=== PATIENT | female | born 1985 | race Two or more races ===

== ENCOUNTER 2016-05-31 20:47 | Emergency (ER) | payer SELFPAY ==
[~2016-05-31] VITALS: Ht 170.2 cm; Wt 56.2 kg
[2016-05-31 21:05] VITALS: BP 102/62
--- NOTE | 2016-05-31 21:54 | PHYS DOC ---
Past Medical History Past Medical History: No Pertinent History Past Surgical History: No Surgical History Alcohol Use: None Drug Use: None Adult General Chief Complaint Chief Complaint: FEVER HPI HPI Patient is a 30 year old female presents emergency Department with his significant other. Patient is Upper Sorbian-speaking only significant other is interpreting for the patient. He states that she has been sick for the last 3-4 days. He states that she has had a cough congestion runny nose and a sore throat. She is also been having nausea and vomiting in which she has vomited 5 times within the last 24 hours and has had 2-3 diarrhea stools. He denies any blood being in either of the stools or vomit. Review of Systems Review of Systems Constitutional: hx fever Eyes: Denies change in visual acuity, redness, or eye pain [] HENT: nasal congestion denies sore throat [] Respiratory: cough denies shortness of breath [] Cardiovascular: No additional information not addressed in HPI [] GI: abdominal pain, nausea, vomiting, and diarrhea [] : Denies dysuria or hematuria [] Musculoskeletal: Denies back pain or joint pain [] Integument: Denies rash or skin lesions [] Neurologic: Denies headache, focal weakness or sensory changes [] Current Medications Current Medications Current Medications Medications (Trade) Dose Ordered Sig/Jose Juan Start Time Stop Time Status Last Admin Dose Admin Ondansetron HCl (Zofran Odt) 4 mg 1X ONCE 05/31/16 22:00 05/31/16 22:01 DC 05/31/16 21:58 4 MG Allergies Allergies Allergies Coded Allergies Type Severity Reaction Last Updated Verified No Known Drug Allergies 05/31/16 No Physical Exam Physical Exam Constitutional: Well developed, well nourished, no acute distress, non-toxic appearance. [] HENT: Normocephalic, atraumatic, bilateral external ears normal, oropharynx moist, no oral exudates, nose normal. Bilateral tympanic membranes appear to be normal. Throat with erythematous with exudate noted. Tonsils appear to be swollen uvula appears to be with no deviation. Eyes: PERRLA, EOMI, conjunctiva normal, no discharge. [] Neck: Normal range of motion, no tenderness, supple, no stridor. [] Cardiovascular:Heart rate regular rhythm, no murmur [] Lungs & Thorax: Bilateral breath sounds clear to auscultation [] Abdomen: Bowel sounds hypoactive, soft, generalized tenderness, no masses, no pulsatile masses. [] Skin: Warm, dry, no erythema, no rash. [] Back: No tenderness Extremities: No tenderness, no cyanosis, no clubbing, ROM intact, no edema. [] Neurologic: Alert and oriented X 3, normal motor function, normal sensory function, no focal deficits noted. [] Psychologic: Affect normal, judgement normal, mood normal. [] Current Patient Data Vital Signs Vital Signs Date Time Temp Pulse Resp B/P Pulse Ox O2 Delivery O2 Flow Rate FiO2 05/31/16 21:05 99.7 118 16 99 Room Air 99.7 Lab Values Laboratory Tests Test 05/31/16 21:24 Influenza Type A Antigen Negative (NEGATIVE) Influenza Type B Antigen Negative (NEGATIVE) EKG EKG [] Radiology/Procedures Radiology/Procedures [] Course & Med Decision Making Course & Med Decision Making Pertinent Labs and Imaging studies reviewed. (See chart for details) Rapid strep was positive. Influenza swabs were negative. Patient will be discharged home with amoxicillin. Recommendations to drink plenty of fluids. Tylenol and ibuprofen for fever chills generalized body aches and discomfort. Also recommended patient to discard her toothbrush in the next 24 hours and obtain a new one. Patient will be discharged home in stable condition since symptoms to return back to emergency prior has been provided. [] Dragon Disclaimer Dragon Disclaimer This electronic medical record was generated, in whole or in part, using a voice recognition dictation system. Departure Departure Impression: Primary Impression: Strep throat Disposition: HOME, SELF-CARE Condition: STABLE Patient Instructions: Strep Throat, [id number] Additional Instructions: Home to rest Tylenol or ibuprofen for fever chills or generalized body aches and discomfort. Medication as prescribed. Drink plenty of fluids. Warm salt water gargles may help with the soothe the throat. Discard her toothbrush in the next 24 hours. Follow-up primary care physician in the next 3-5 days. Return back to emergency department sign symptoms of become worse. Scripts Amoxicillin 500 Mg Capsule1 Cap PO BID #20 CAP Prov:ALVERTO YI NP 05/31/16 ALVERTO YI NP May 31, 2016 21:54
[2016-05-31] MEDS ORDERED: ONDANSETRON ODT 4 MG TAB.RAPDIS PO ONE (22:00)
[2016-05-31 22:06] LABS: OBC FLU VALID
[2016-05-31] MEDS ORDERED: AMOX500C PO (22:15)
[2016-06-01 07:40] LABS: NEGATIVE OBC STREP NEG; POSITIVE OBC STREP POS
== END 2016-05-31 22:25 | disposition home or self-care (01) ==
LOC: ER 20:47
DX: J02.0 Streptococcal pharyngitis (principal); R11.2 Nausea with vomiting, unspecified; R19.7 Diarrhea, unspecified
CPT/HCPCS: 87804; 87880; 99284; Q0162; 99285-25

== ENCOUNTER 2017-01-10 18:01 | Inpatient (IN) | payer SELFPAY ==
[~2017-01-10] VITALS: Ht 162.6 cm; Wt 72.6 kg
[~2017-01-10 18:01] MED LIST: AMOX500C PO
[2017-01-10] MEDS ORDERED: ACETAMINOPHEN 325 MG TABLET. PO PRN (18:45)
[2017-01-10] MEDS ORDERED: ZOLPIDEM 5 MG TABLET. PO PRN (18:45)
[2017-01-10] MEDS: IV RINGERS,LACTATED 1000ML 1,000 ML IV PRN ×2 (19:19→22:01)
[2017-01-10 21:07] LABS: BILIRUBIN,URINE NEGATIVE (NEG); GLUCOSE,URINE NEGATIVE (NEG); NITRITE,URINE NEGATIVE (NEG); PROTEIN,URINE NEGATIVE (NEG-TRACE)
[2017-01-10 21:14] LABS: BARBITURATES NEG (NEG); BENZODIAZEPINES NEG (NEG); CANNABINOIDS NEG (NEG); COCAINE NEG (NEG); METHADONE NEG (NEG); OPIATES NEG (NEG); PHENCYCLIDINE NEG (NEG)
[2017-01-10 21:17] LABS: BACTERIA,URINE FEW /HPF (0-FEW); SQUAMOUS EPITHELIAL CELL,UR FEW /LPF
[2017-01-11] MEDS: IV RINGERS,LACTATED 1000ML 1,000 ML IV PRN ×2 (05:39→13:12)
--- NOTE | 2017-01-11 08:14 | PDOC1 ---
OB - History Hx of Present Care: Good Care Ultrasounds: Normal mid trimester US Obstetrical Complications: None Medical Complications: None Other Concerns: Desires Past Family/Social History * Past Medical, Surgical, Family and Obstetric Histories reviewed from chart. Rubella: Immune RPR/VDRL: Negative GBS Status: Negative HBsAG: Negative OB - Chief Complaint & HPI Date of Admission: Date of Admission: Jan 10, 2017 at 18:01 Chief Complaint/History : 3 Para: 2 EGA: 38 Reason for admission: active labor Admission Nurse Assessment Rev: Yes Problems: OB - Admission Exam Physical Exam Vitals: VS - Last 72 Hours, by Label Date Time Temp Pulse Resp B/P (MAP) Pulse Ox O2 Delivery O2 Flow Rate FiO2 01/11/17 00:37 99.3 18 Room Air 99.3 HEENT: Normal Heart: Regular Rate Lungs: Clear Abdomen: Gravid, Non tender, Soft Extremities: Edema Reflexes: Normal Cervical Dilatation: 4cm Effacement: 75% Station: -2 Membranes: Intact Heart Rate: Normal Accelerations: Accelerations Present Decelerations: No decelerations Contractions on Admission: 6-10 Minutes Apart Intensity: Mild Text A: 38 wks IUP Previous C/s Desires P: Admit for labor management. KEZIA TAVERAS Jr, MD Jan 11, 2017 08:13
[2017-01-11] MEDS ORDERED: IV RINGERS,LACTATED 1000ML 1,000 ML IV SCH (11:41)
[2017-01-11] MEDS ORDERED: OXYTOCIN 30 UNIT/500 ML PREMIX 500 ML IV PRN ×2 (11:45)
[2017-01-11] MEDS ORDERED: TERBUTALINE 1 MG/ML VIAL. SQ PRN (11:45)
[2017-01-11] MEDS ORDERED: LIDOCAINE 1% PF 30 ML VIAL. INJ PRN (11:45)
[2017-01-11] MEDS ORDERED: fentaNYL PF VIAL 100 MCG/2 ML VIAL IV PRN (11:45)
[2017-01-11] MEDS ORDERED: 0.9 % SODIUM CHLORIDE 10 ML DISP.SYRIN. IV PRN (11:45)
[2017-01-11] MEDS ORDERED: IBUPROFEN 600 MG TABLET. PO PRN (11:45)
[2017-01-11 13:21] LABS: HEMATOCRIT 34.1 % (36.0-47.0); HEMOGLOBIN 11.6 g/dL (12.0-15.5); RED BLOOD COUNT 3.61 x10^6/uL (3.50-5.40); RED CELL DISTRIBUTION WIDTH 13.3 % (11.5-14.5); WHITE BLOOD COUNT 7.2 x10^3/uL (4.0-11.0)
--- NOTE | 2017-01-11 16:30 | RAD ---
EXAM: biophysical profile. HISTORY: Active labor. TECHNIQUE: Sonographic imaging of a gravid uterus was performed. COMPARISON: None. FINDINGS: There is a single intrauterine fetus in vertex presentation with a heart rate of 150 bpm. The amniotic fluid index is decreased at 6.3 cm. There is a grade 3 right lateral placenta without evidence of placenta previa. There is normal tone, breathing movement and body movement and there is a normal pocket of amniotic fluid, corresponding with a biophysical profile 8/8. The cervix measures 3.6 cm in length. The exam time is 12 minutes. IMPRESSION: 1. Single intrauterine fetus in vertex presentation with a heart rate of 150 bpm. 2. Slightly decreased amniotic fluid index of 6.3 cm. 3. biophysical profile of 8/8. 4. Long and closed cervix.
[2017-01-12] MEDS ORDERED: OXYTOCIN 30 UNIT/500 ML PREMIX 500 ML IV ONE (06:00)
[2017-01-12] MEDS: IV RINGERS,LACTATED 1000ML 1,000 ML IV PRN (07:01)
--- NOTE | 2017-01-12 10:07 | PDOC ---
OB Progress Note Date: Latent labor ACD Borderline oligo One 2X2 pocket without cord Large pocket appears to contain cord Language barrier Proceed to delivery with augmentation of 38/3 week IUP Lab Laboratory Tests Test 01/10/17 20:55 01/11/17 12:25 Urine Collection Type Unknown Urine Color Sylwia Urine Clarity Cloudy Urine pH 7.0 Urine Specific [place] 1.020 Urine Protein Negative mg/dL (NEG-TRACE) Urine Glucose (UA) Negative mg/dL (NEG) Urine Ketones (Stick) Negative mg/dL (NEG) Urine Blood Moderate (NEG) Urine Nitrite Negative (NEG) Urine Bilirubin Negative (NEG) Urine Urobilinogen Dipstick 1.0 mg/dL (0.2 mg/dL) Urine Leukocyte Esterase Small (NEG) Urine RBC 6-10 /HPF (0-2) Urine WBC 1-4 /HPF (0-4) Urine Squamous Epithelial Cells Few /LPF Urine Bacteria Few /HPF (0-FEW) Urine Mucus Slight /LPF Urine Opiates Screen Neg (NEG) Urine Methadone Screen Neg (NEG) Urine Barbiturates Neg (NEG) Urine Phencyclidine Screen Neg (NEG) Urine Amphetamine/Methamphetamine Neg (NEG) Urine Benzodiazepines Screen Neg (NEG) Urine Cocaine Screen Neg (NEG) Urine Cannabinoids Screen Neg (NEG) Urine Ethyl Alcohol Neg (NEG) White Blood Count 7.2 x10^3/uL (4.0-11.0) Red Blood Count 3.61 x10^6/uL (3.50-5.40) Hemoglobin 11.6 g/dL (12.0-15.5) Hematocrit 34.1 % (36.0-47.0) Mean Corpuscular Volume 95 fL (79-100) Mean Corpuscular Hemoglobin 32 pg (25-35) Mean Corpuscular Hemoglobin Concent 34 g/dL (31-37) Red Cell Distribution Width 13.3 % (11.5-14.5) Platelet Count 157 x10^3/uL (140-400) Laboratory Tests Test 01/11/17 12:25 White Blood Count 7.2 x10^3/uL (4.0-11.0) Red Blood Count 3.61 x10^6/uL (3.50-5.40) Hemoglobin 11.6 g/dL (12.0-15.5) Hematocrit 34.1 % (36.0-47.0) Mean Corpuscular Volume 95 fL (79-100) Mean Corpuscular Hemoglobin 32 pg (25-35) Mean Corpuscular Hemoglobin Concent 34 g/dL (31-37) Red Cell Distribution Width 13.3 % (11.5-14.5) Platelet Count 157 x10^3/uL (140-400) Medications Current Medications Ringer's Solution 1,000 ml @ 125 mls/hr Q8H PRN IV PAIN Last administered on 07:01; Start 01/10/17 at 18:45 Acetaminophen (Tylenol) 650 mg PRN Q6HRS PRN PO PAIN, TEMP > 100.5'F; Start at 18:45 Zolpidem Tartrate (Ambien) 5 mg PRN QHS PRN PO INSOMNIA Last administered on 22:00; Start 01/10/17 at 18:45 Sodium Chloride (Normal Saline Flush) 3 ml QSHIFT PRN IV AFTER MEDS AND BLOOD DRAWS; Start 01/11/17 at 11:45 Ringer's Solution 1,000 ml @ 125 mls/hr Q8H IV ; Start 01/11/17 at 11:41 Fentanyl Citrate (Fentanyl 2ml Vial) 50 mcg PRN Q30MIN PRN IV Mild to moderate pain; Start 01/11/17 at 11:45 Terbutaline Sulfate (Brethine) 0.25 mg 1X PRN PRN SQ SEE COMMENTS; Start at 11:45; Stop 01/12/17 at 11:44 Lidocaine HCl 30 ml 1X PRN PRN INJ SEE COMMENTS; Start 01/11/17 at 11:45; Stop 01/13/17 at 11:44 Oxytocin/Sodium Chloride 500 ml @ 0 mls/hr CONT PRN IV SEE I/O RECORD; Start at 11:45 Oxytocin/Sodium Chloride 500 ml @ 0 mls/hr CONT PRN PRN IV Post delivery bleeding; Start 01/11/17 at 11:45 Ibuprofen (Motrin) 600 mg PRN Q6HRS PRN PO PAIN; Start 01/11/17 at 11:45 Oxytocin/Sodium Chloride 500 ml @ 0 mls/hr 1X ONCE IV Last administered on 09:24; Start 01/12/17 at 06:00; Stop 01/12/17 at 06:01; Status DC Active Scripts Active Amoxicillin 500 Mg Capsule 1 Cap PO BID Plan of Care: See new orders Other Anticipate -KARSON Xiao MD Jan 12, 2017 10:07
[2017-01-12] MEDS ORDERED: IV RINGERS,LACTATED 1000ML 1,000 ML IV SCH (10:33)
[2017-01-12] MEDS ORDERED: L&D EPIDURAL CASSETTE 100 ML EP ONE (10:37)
[2017-01-12] MEDS ORDERED: NALOXONE 0.4 MG/ML VIAL. IV PRN (10:45)
[2017-01-12] MEDS ORDERED: ePHEDrine PF IN SALINE 50 MG/5 ML DISP.SYRIN IV PRN (10:45)
[2017-01-12] MEDS ORDERED: ONDANSETRON PF 4 MG/2 ML VIAL. IV PRN (10:45)
[2017-01-12] MEDS ORDERED: L&D EPIDURAL CASSETTE 100 ML EP PRN (10:45)
[2017-01-12] MEDS ORDERED: ROPIVacaine 0.2% IN 0.9%NACL PF 40 MG/20 ML DISP.SYRIN. EPI PRN (10:45)
[2017-01-12] MEDS ORDERED: fentaNYL PF VIAL 100 MCG/2 ML VIAL EPI PRN (10:45)
--- NOTE | 2017-01-12 11:20 | PDOC ---
VAGINAL DELIVERY DATE DATE: 01/12/17 TIME: 11:19 : 3 Para: 3 EGA: 38 VAGINAL DELIVERY: VTX VACCUM ASSISTED: No PLACENTA: Spontaneous 8/9 SEX: Female WEIGHT Weight pending ] Nuchal Cord: No Amniotic Fluid: Clear PAIN: Natural EPISIOTOMY: No EXTENSION: No EBL 300 ml COMPLICATIONS none Signs of Intrauterine Infectio: None Shoulder Dystocia: No Problems: KEZIA TAVERAS Jr, MD Jan 12, 2017 11:20
[2017-01-12] MEDS ORDERED: SIMETHICONE 80 MG TAB.CHEW PO PRN (11:30)
[2017-01-12] MEDS ORDERED: ZOLPIDEM 5 MG TABLET. PO PRN (11:30)
[2017-01-12] MEDS ORDERED: ACETAMINOPHEN 325 MG TABLET. PO PRN (11:30)
[2017-01-12] MEDS ORDERED: PHENYLEPH/MINERAL OIL/PETROLAT RECTAL OINTMENT 28GM TUBE. RC PRN (11:30)
[2017-01-12] MEDS ORDERED: MAGNESIUM HYDROXIDE 2,400 MG/30 ML ORAL.SUSP. PO PRN (11:30)
[2017-01-12] MEDS ORDERED: MMR per PROTOCOL. MC PRN (11:30)
[2017-01-12] MEDS ORDERED: OXYTOCIN 30 UNIT/500 ML PREMIX 500 ML IV PRN (11:30)
[2017-01-12] MEDS ORDERED: MAG HYDROX/ALUMINUM HYD/SIMETH 30 ML ORAL.SUSP PO PRN (11:30)
[2017-01-12] MEDS ORDERED: BENZOCAINE 20% TOPICAL AEROSOL SPRAY 57GM CAN. TP PRN (11:30)
[2017-01-12] MEDS ORDERED: 0.9 % SODIUM CHLORIDE 10 ML DISP.SYRIN. IV PRN (11:30)
[2017-01-12] MEDS ORDERED: HYDROCORTISONE 1% TOPICAL OINTMENT 30GM TUBE. TP PRN (11:30)
[2017-01-12] MEDS ORDERED: diphenhydrAMINE HCL 25 MG CAPSULE PO PRN (11:30)
[2017-01-12] MEDS: IBUPROFEN 800 MG TABLET. PO PRN ×2 (14:02→22:14)
[2017-01-12 14:30] VITALS: BP 100/70
[2017-01-12 15:00] VITALS: BP 97/67
[2017-01-12 16:00] VITALS: BP 98/67
[2017-01-12 17:00] VITALS: BP 98/70
[2017-01-12] MEDS ORDERED: FERROUS SULFATE 325 MG TABLET. PO SCH (17:00)
[2017-01-12] MEDS ORDERED: FLU VACC QS2017-18 (36MOS+)/PF 0.5 ML SYRINGE. VAX IM ONE (18:30)
[2017-01-12] MEDS: DOCUSATE SODIUM 100 MG CAPSULE. PO PRN (22:14)
[2017-01-12 22:31] VITALS: BP 104/72
[2017-01-13 01:00] VITALS: BP 102/74
[2017-01-13 04:00] LABS: BASO % 0 % (0-3); EOS % 1 % (0-3); HEMATOCRIT 33.6 % (36.0-47.0); HEMOGLOBIN 11.5 g/dL (12.0-15.5); LYMPH # 2.6 x10^3/uL (1.0-4.8); LYMPH % 26 % (24-48); MEAN CORPUSCULAR HEMOGLOBIN 33 pg (25-35); MEAN CORPUSCULAR HGB CONC 34 g/dL (31-37); MEAN CORPUSCULAR VOLUME 95 fL (79-100); MONO % 6 % (0-9); NEUT % 67 % (31-73); PLATELET COUNT 153 x10^3/uL (140-400); RED BLOOD COUNT 3.55 x10^6/uL (3.50-5.40); RED CELL DISTRIBUTION WIDTH 13.4 % (11.5-14.5); WHITE BLOOD COUNT 10.1 x10^3/uL (4.0-11.0)
[2017-01-13 05:00] VITALS: BP 95/69
[2017-01-13] MEDS: IBUPROFEN 800 MG TABLET. PO PRN ×3 (05:15→20:54)
--- NOTE | 2017-01-13 13:00 | PDOC ---
OB Progress Note Date of Service 01/13/17 Time of Evaluation 1255 Notes Pt. feeling well. No complaints. Breast feeding. Lochia minimal. Pain controlled. Lab Laboratory Tests Test 01/13/17 03:30 White Blood Count 10.1 x10^3/uL (4.0-11.0) Red Blood Count 3.55 x10^6/uL (3.50-5.40) Hemoglobin 11.5 g/dL (12.0-15.5) Hematocrit 33.6 % (36.0-47.0) Mean Corpuscular Volume 95 fL (79-100) Mean Corpuscular Hemoglobin 33 pg (25-35) Mean Corpuscular Hemoglobin Concent 34 g/dL (31-37) Red Cell Distribution Width 13.4 % (11.5-14.5) Platelet Count 153 x10^3/uL (140-400) Neutrophils (%) (Auto) 67 % (31-73) Lymphocytes (%) (Auto) 26 % (24-48) Monocytes (%) (Auto) 6 % (0-9) Eosinophils (%) (Auto) 1 % (0-3) Basophils (%) (Auto) 0 % (0-3) Neutrophils # (Auto) 6.7 x10^3uL (1.8-7.7) Lymphocytes # (Auto) 2.6 x10^3/uL (1.0-4.8) Monocytes # (Auto) 0.6 x10^3/uL (0.0-1.1) Eosinophils # (Auto) 0.1 x10^3/uL (0.0-0.7) Basophils # (Auto) 0.0 x10^3/uL (0.0-0.2) Laboratory Tests Test 01/13/17 03:30 White Blood Count 10.1 x10^3/uL (4.0-11.0) Red Blood Count 3.55 x10^6/uL (3.50-5.40) Hemoglobin 11.5 g/dL (12.0-15.5) Hematocrit 33.6 % (36.0-47.0) Mean Corpuscular Volume 95 fL (79-100) Mean Corpuscular Hemoglobin 33 pg (25-35) Mean Corpuscular Hemoglobin Concent 34 g/dL (31-37) Red Cell Distribution Width 13.4 % (11.5-14.5) Platelet Count 153 x10^3/uL (140-400) Neutrophils (%) (Auto) 67 % (31-73) Lymphocytes (%) (Auto) 26 % (24-48) Monocytes (%) (Auto) 6 % (0-9) Eosinophils (%) (Auto) 1 % (0-3) Basophils (%) (Auto) 0 % (0-3) Neutrophils # (Auto) 6.7 x10^3uL (1.8-7.7) Lymphocytes # (Auto) 2.6 x10^3/uL (1.0-4.8) Monocytes # (Auto) 0.6 x10^3/uL (0.0-1.1) Eosinophils # (Auto) 0.1 x10^3/uL (0.0-0.7) Basophils # (Auto) 0.0 x10^3/uL (0.0-0.2) Medications Current Medications Ringer's Solution 1,000 ml @ 125 mls/hr Q8H PRN IV PAIN Last administered on 07:01; Start 01/10/17 at 18:45 Acetaminophen (Tylenol) 650 mg PRN Q6HRS PRN PO PAIN, TEMP > 100.5'F; Start at 18:45; Status Cancel Zolpidem Tartrate (Ambien) 5 mg PRN QHS PRN PO INSOMNIA Last administered on 22:00; Start 01/10/17 at 18:45; Stop 01/12/17 at 18:29; Status DC Sodium Chloride (Normal Saline Flush) 3 ml QSHIFT PRN IV AFTER MEDS AND BLOOD DRAWS; Start 01/11/17 at 11:45 Ringer's Solution 1,000 ml @ 125 mls/hr Q8H IV ; Start 01/11/17 at 11:41 Fentanyl Citrate (Fentanyl 2ml Vial) 50 mcg PRN Q30MIN PRN IV Mild to moderate pain; Start 01/11/17 at 11:45 Terbutaline Sulfate (Brethine) 0.25 mg 1X PRN PRN SQ SEE COMMENTS; Start at 11:45; Stop 01/12/17 at 11:44; Status DC Lidocaine HCl 30 ml 1X PRN PRN INJ SEE COMMENTS; Start 01/11/17 at 11:45; Stop 01/13/17 at 11:44; Status DC Oxytocin/Sodium Chloride 500 ml @ 0 mls/hr CONT PRN IV SEE I/O RECORD; Start at 11:45 Oxytocin/Sodium Chloride 500 ml @ 0 mls/hr CONT PRN PRN IV Post delivery bleeding; Start 01/11/17 at 11:45 Ibuprofen (Motrin) 600 mg PRN Q6HRS PRN PO PAIN; Start 01/11/17 at 11:45 Oxytocin/Sodium Chloride 500 ml @ 0 mls/hr 1X ONCE IV Last administered on 09:24; Start 01/12/17 at 06:00; Stop 01/12/17 at 06:01; Status DC Ringer's Solution 1,000 ml @ 1,000 mls/hr Q1H IV ; Start 01/12/17 at 10:33; Stop 01/12/17 at 11:33; Status DC Ephedrine Sulfate 10 mg PRN Q2MIN PRN IV IF SBP<90; Start 01/12/17 at 10:45 Naloxone HCl (Narcan) 0.4 mg PRN Q1MIN PRN IV SEE COMMENTS; Start 01/12/17 at 10:45 Fentanyl Citrate (Fentanyl 2ml Vial) 100 mcg PRN 1X PRN EPI FOR ANESTHESIA; Start 01/12/17 at 10:45; Stop 01/13/17 at 10:44; Status DC Ropivacaine/ Fentanyl/NS 100 ml @ 14 mls/hr CONT PRN EP PAIN Last administered on 01/12/17 12:33; Start 01/12/17 at 10:45 Ondansetron HCl (Zofran) 4 mg PRN Q6HRS PRN IV NAUSEA/VOMITING; Start 01/12/17 at 10:45 Ropivacaine/ Sodium Chloride 40 mg PRN 1X PRN EPI SEE COMMENTS Last administered on 01/12/17 12:30; Start 01/12/17 at 10:45; Stop 01/13/17 at 10:44 ; Status DC Ropivacaine/ Fentanyl/NS 100 ml @ As Directed STK-MED ONCE EP ; Start 01/12/17 at 10:37; Stop 01/12/17 at 10:38; Status DC Sodium Chloride (Normal Saline Flush) 10 ml QSHIFT PRN IV AFTER MEDS AND BLOOD DRAWS; Start 01/12/17 at 11:30 Oxytocin/Sodium Chloride 500 ml @ 62.5 mls/hr CONT PRN IV SEE I/O RECORD; Start 01/12/17 at 11:30; Stop 01/12/17 at 19:29; Status DC Acetaminophen (Tylenol) 650 mg PRN Q6HRS PRN PO MILD PAIN / TEMP; Start at 11:30 Ibuprofen (Motrin) 800 mg PRN Q8HRS PRN PO INFLAMMATION/PAIN PREVENTION Last administered on 01/13/17 05:15; Start 01/12/17 at 11:30 Docusate Sodium (Colace) 100 mg PRN BID PRN PO CONSTIPATION Last administered on 01/12/17 22:14; Start 01/12/17 at 11:30 Magnesium Hydroxide (Milk Of Magnesia) 2,400 mg PRN DAILY PRN PO CONSTIPATION; Start 01/12/17 at 11:30 Al Hydroxide/Mg Hydroxide (Mylanta Plus Xs) 30 ml PRN Q4HRS PRN PO HEARTBURN / GAS; Start 01/12/17 at 11:30 Simethicone (Gas-X) 80 mg PRN AFTMEALHC PRN PO GAS / BLOATING; Start 01/12/17 at 11:30 Diphenhydramine HCl (Benadryl) 25 mg PRN Q6HRS PRN PO ITCHING; Start 01/12/17 at 11:30 Benzocaine (Americaine) 1 spray PRN QID PRN TP TOPICAL PAIN; Start 01/12/17 at 11:30 Phenyleph/Shark Oil/Min Oil/Petrol (Preparation H) 1 cassidy PRN QID PRN RC RECTAL PAIN; Start 01/12/17 at 11:30 Hydrocortisone (Cortaid) 1 cassidy PRN QID PRN TP PERINEAL PAIN; Start 01/12/17 at 11:30 Ferrous Sulfate (Feosol) 325 mg BIDWMEALS PO ; Start 01/12/17 at 17:00 Zolpidem Tartrate (Ambien) 5 mg PRN QHS PRN PO INSOMNIA, MAY REPEAT X1; Start 01/12/17 at 11:30 Info (Do NOT chart on this placeholder) 1 ea 1X PRN PRN MC SEE COMMENTS; Start 01/12/17 at 11:30 Info (Do NOT chart on this placeholder) 1 ea 1X PRN PRN MC SEE COMMENTS; Start 01/12/17 at 11:30 Oxycodone/ Acetaminophen (Percocet 5/325) 2 tab PRN Q4HRS PRN PO MODERATE PAIN , SEVERE PAIN; Start 01/12/17 at 11:30 Influenza Virus Vaccine Quadrival (Fluarix Quad 7245-2021 Syringe) 0.5 ml ONCE ONCE VAX IM Last administered on 01/12/17t 22:17; Start 01/12/17 at 18:30; Stop 01/12/17 at 18:31; Status DC Active Scripts Active Amoxicillin 500 Mg Capsule 1 Cap PO BID Exam Abd: soft,non tender, fundus firm Assessment PPD#1 s/p Plan of Care: Continue current Tx, Mgmt KEZIA TAVERAS Jr, MD Jan 13, 2017 13:00
[2017-01-13] MEDS: DOCUSATE SODIUM 100 MG CAPSULE. PO PRN ×2 (13:54→20:54)
[2017-01-13] MEDS: oxyCODONE/APAP 5/325 1 TAB TABLET PO PRN ×2 (13:54→20:54)
[2017-01-13 14:03] VITALS: BP 102/72
[2017-01-13 21:00] VITALS: BP 102/65
[2017-01-14 05:05] VITALS: BP 88/54
[2017-01-14 09:00] VITALS: BP 91/59
[2017-01-14] MEDS: DOCUSATE SODIUM 100 MG CAPSULE. PO PRN (10:06)
[2017-01-14] MEDS: IBUPROFEN 800 MG TABLET. PO PRN (10:06)
[2017-01-14] MEDS: oxyCODONE/APAP 5/325 1 TAB TABLET PO PRN ×2 (12:20→16:45)
[2017-01-14 18:40] VITALS: BP 111/76
--- NOTE | 2017-01-14 18:41 | PDOC3 ---
OB DISCHARGE SUMMARY DATE OF ADMISSION: 01/11/17 DATE OF DISCHARGE: 01/14/17 REASON FOR ADMISSION: Observation/evaluation, Other (Aumentation) PROCEDURES: Ultrasound, Mgmt of OB Complications, Others ( Oligohydramnios) INTRAPARTUM PROCEDURES: Spontanous Vag Deliv, Others (-[place]) PROCEDURES: None OPERATIONS: None DISCHARGE DIAGNOSIS: Term Delivered DISCHARGE INFORMATION: Activity, Diet HOSPITAL COURSE unremarkable CONDITION AT DISCHARGE Stable KARSON GARCIA MD Jan 14, 2017 18:41
[2017-01-14] MEDS ORDERED: HYDR-971 PO (18:42)
[2017-01-14] MEDS ORDERED: NAPR500T3 PO (18:42)
== END 2017-01-14 20:35 | disposition home or self-care (01) | DRG 775 ==
LOC: 3 SO LND 18:01 → OBSVTOIN 01-11 11:52 → 3 NORTH 01-12 14:00
PROVIDERS: ADMIT Specialist; ATTEND Specialist
PROC: 10E0XZZ Delivery of Products of Conception, External Approach (ICD-10-PCS; principal; 2017-01-12)
DX: O34.219 Maternal care for unspecified type scar from previous cesarean delivery (principal); O41.03X0 Oligohydramnios, third trimester, not applicable or unspecified; Z3A.38 38 weeks gestation of pregnancy; Z37.0 Single live birth
CPT/HCPCS: 36415; 76819; 80307; 81001; 85025; 85027; 86850; 86900; 86901; 87086; 90686; G0378; G0379; J2590; J2795; J7120; G0479